=== PATIENT | female | born 1940 | race Caucasian/White ===

== ENCOUNTER 2020-07-16 18:19 | Emergency (ER) | payer MEDICARE, OTHER ==
[~2020-07-16] VITALS: Ht 152.4 cm; Wt 62.0 kg
[2020-07-16] MEDS ORDERED: IV NORMAL SALINE 1,000ML 1,000 ML IV ONE (19:15)
[2020-07-16] MEDS ORDERED: ONDANSETRON PF 4 MG/2 ML VIAL. IVP ONE (19:15)
[2020-07-16] MEDS ORDERED: MORPHINE SULFATE 4 MG/ML DISP.SYRIN. IV ONE (19:15)
--- NOTE | 2020-07-16 19:16 | PHYS DOC ---
General Adult EDM: Chief Complaint: FLANK PAIN HPI: HPI: 72-year-old female presents with right lower quadrant abdominal pain. The patient had an ostomy placed 1 year ago today. For the last few weeks she has been having pain in her abdomen around the ostomy site. Cramping sensation 10. It is worse with torso movements and carrying things with her arms. She was told she has a hernia in this area. She is supposed to be did gain a support belt. She presents today because the pain is so bad. She has been taking oxycodone from a family member her last dose was 3:30 PM. She is not going back to the surgeon for about 10 days. Her primary complaint with the pain. Review of Systems: Review of Systems: Constitutional: Denies fever or chills Eyes: Denies change in visual acuity HENT: Denies nasal congestion or sore throat Respiratory: Denies cough or shortness of breath Cardiovascular: Denies chest pain or edema GI: RLQ abdominal pain. Denies nausea, vomiting, bloody stools or diarrhea : Denies dysuria Musculoskeletal: Denies back pain or joint pain Integument: Denies rash Neurologic: Denies headache, focal weakness or sensory changes Endocrine: Denies polyuria or polydipsia Lymphatic: Denies swollen glands Psychiatric: Denies depression or anxiety Current Medications: Current Meds: Current Medications Medications (Trade) Dose Ordered Sig/Robert Start Time Stop Time Status Last Admin Dose Admin Morphine Sulfate (Morphine 4mg Syringe) 4 mg 1X ONCE 07/16/20 19:15 07/16/20 19:16 UNV Ondansetron HCl (Zofran) 4 mg 1X ONCE 07/16/20 19:15 07/16/20 19:16 UNV Sodium Chloride 1,000 ml @ 1,000 mls/hr 1X ONCE 07/16/20 19:15 07/16/20 20:14 UNV Physical Exam: PE: Constitutional: Well developed, well nourished, no acute distress, non-toxic appearance. [] HENT: Normocephalic, atraumatic, bilateral external ears normal, oropharynx moist, no oral exudates, nose normal. [] Eyes: PERRLA, EOMI, conjunctiva normal, no discharge. [] Neck: Normal range of motion, no tenderness, supple, no stridor. [] Cardiovascular: Heart rate regular rhythm, no murmur [] Lungs & Thorax: Bilateral breath sounds clear to auscultation [] Abdomen: Bowel sounds normal, soft, ostomy on right, tenderness lateral to ostomy, no masses, no pulsatile masses. [] Skin: Warm, dry, no erythema, no rash. [] Back: No tenderness, no CVA tenderness. [] Extremities: No tenderness, no cyanosis, no clubbing, ROM intact, no edema. [] Neurologic: Alert and oriented X 3, normal motor function, normal sensory function, no focal deficits noted. [] Psychologic: Affect normal, judgement normal, mood normal. [] EKG: EKG: [] Radiology/Procedures: Radiology/Procedures: [] Impressions: Exam: CT of abdomen and pelvis with contrast INDICATION: Pain around ostomy TECHNIQUE: Sequential axial images through the abdomen and pelvis obtained following the administration of 60 mL of Isovue-370 IV contrast. Sagittal and coronal reformatted images were reconstructed from the axial data and reviewed. Comparisons: None FINDINGS: Heart size is normal. Effusion. Strandy opacities at dependent portion lungs likely representing atelectasis. No pleural effusion. Mild intrahepatic or ductal dilatation is noted. Gallbladder is mildly distended with gallstones. Otherwise, liver, spleen, pancreas and adrenals are unremarkable. No perinephric inflammation or hydronephrosis. Cystectomy changes with ileal conduit is seen. Nonobstructing left renal calculi are seen. Cystic lesion at the kidneys bilaterally some which are too small characterize largest at the mid right kidney representing simple cysts. Uterus is absent. There is a soft tissue nodule measuring approximately 2.3 cm in the hysterectomy bed seen on series 2 image 67. Right lower quadrant ileostomy with parastomal hernia containing several loops of small bowel. No evidence for obstruction. Remainder of the large and small bowel are unremarkable. No free intra-abdominal air or fluid. Abdominal aorta has a normal course and caliber. Abdominal vasculature is patent. There are several prominent mildly enlarged right common iliac lymph nodes largest on series 2 image 50 measuring approximately 1.3 cm in short axis. There is a lytic soft tissue lesion involving the left pedicle of L3. Several other lytic lesions are noted in the axial skeleton. Mild compression of the L1 vertebral body. IMPRESSION: 1. Postsurgical changes of hysterectomy/cystectomy with a right lower quadrant ileal conduit. There is a parastomal hernia containing several loops of small bowel, no evidence for obstruction. 2. Findings of metastatic disease with numerous lytic lesions in the axilla skeleton as well as a soft tissue nodule at the hysterectomy/cystectomy site measuring 2.3 cm. 3. There are several prominent mildly enlarged right common iliac and external iliac lymph nodes which are nonspecific however suspicious for metastatic involvement. Exposure: One or more of the following in the visualized dose reduction techniques were utilized for this examination: 1. Automated exposure control 2. Adjustment of the MA and/or KV according to patient size 3. Use of iterative of reconstructive technique Electronically signed by: Mary Figueroa MD (07/16/2020 10:46 PM) [facility] DICTATED AND SIGNED BY: MARY FIGUEROA MD DATE: 07/16/202245 CC: CLEMENTE MENDEZ MD; YUE HA DO ~ Heart Score: Risk Factors: Risk Factors: DM, Current or recent (<one month) smoker, HTN, HLP, family history of CAD, obesity. Risk Scores: Score 0 - 3: 2.5% MACE over next 6 weeks - Discharge Home Score 4 - 6: 20.3% MACE over next 6 weeks - Admit for Clinical Observation Score 7 - 10: 72.7% MACE over next 6 weeks - Early Invasive Strategies Course & Med Decision Making: Course & Med Decision Making Pertinent Labs and Imaging studies reviewed. (See chart for details) The patient has a slight elevated white count of 15. Bowel rest of the labs are essentially normal. See labs for more specific details. Her CT scan does show loops of bowel in the hernia around the stoma. No evidence of obstruction. I have advised that the patient follow-up with her surgical team by calling them tomorrow. I will give her a short course of Percocet 5 for her discomfort. I was able to control her pain with 4 mg of morphine in the ER. She is stable for discharge at this time. [] Dragon Disclaimer: Dragsergo Disclaimer: This electronic medical record was generated, in whole or in part, using a voice recognition dictation system. Departure Departure: Impression: Primary Impression: Ventral hernia Qualified Codes: K43.9 - Ventral hernia without obstruction or gangrene Disposition: 01 DC HOME SELF CARE/HOMELESS Condition: STABLE Referrals: CLEMENTE MENDEZ MD (PCP) Patient Instructions: Hernia, [id number] Scripts Oxycodone Hcl/Acetaminophen (PERCOCET 5-325 MG TABLET ) 1 Each Tablet 1 TAB PO Q6HRS PRN for PAIN, #10 TAB 0 Refills Prov: YUE HA DO 07/16/20 YUE HA DO Jul 16, 2020 19:16
[2020-07-16 19:19] LABS: BACTERIA,URINE 0 /HPF (0-FEW); BILIRUBIN,URINE NEG (NEG); CLARITY,URINE CLEAR; COLOR,URINE COLORLESS; GLUCOSE,URINE NEG (NEG); NITRITE,URINE NEG (NEG); UROBILINOGEN,URINE 0.2 mg/dL (0.2 mg/dL); WBC,URINE TNTC /HPF (0-4)
[2020-07-16] MEDS ORDERED: IOHEXOL 300 MG/ML 75 ML VIAL. IV ONE (19:30)
[2020-07-16 20:15] LABS: BASO % 0 % (0-3); EOS % 0 % (0-3); HEMATOCRIT 36.1 % (36.0-47.0); HEMOGLOBIN 11.4 g/dL (12.0-15.5); LYMPH # 0.6 x10^3/uL (1.0-4.8); LYMPH % 4 % (24-48); MEAN CORPUSCULAR HEMOGLOBIN 27 pg (25-35); MEAN CORPUSCULAR HGB CONC 32 g/dL (31-37); MEAN CORPUSCULAR VOLUME 85 fL (79-100); MONO # 0.8 x10^3/uL (0.0-1.1); MONO % 5 % (0-9); NEUT % 91 % (31-73); PLATELET COUNT 703 x10^3/uL (140-400); RED BLOOD COUNT 4.26 x10^6/uL (3.50-5.40); RED CELL DISTRIBUTION WIDTH 17.1 % (11.5-14.5); WHITE BLOOD COUNT 15.4 x10^3/uL (4.0-11.0)
[2020-07-16 20:49] LABS: % BASOS 1 % (0-3); % LYMPHS 9 % (24-48); % MONOS 7 % (0-10); % SEGS 83 % (35-66); PLATELET CLUMP PRESENT; PLT ESTIMATE INCREASED (ADEQUATE)
[2020-07-16 21:06] LABS: % BANDS 0 % (0-9)
[2020-07-16 21:34] LABS: CALCIUM 9.6 mg/dL (8.5-10.1); CREATININE 1.2 mg/dL (0.6-1.0); GFR 43.4; POTASSIUM 3.8 mmol/L (3.5-5.1)
[2020-07-16 21:40] LABS: ALBUMIN 2.5 g/dL (3.4-5.0); ALBUMIN/GLOBULIN RATIO 0.5 (1.0-1.7); TOTAL BILIRUBIN 0.2 mg/dL (0.2-1.0); TOTAL PROTEIN 7.5 g/dL (6.4-8.2)
--- NOTE | 2020-07-16 22:49 | RAD ---
Exam: CT of abdomen and pelvis with contrast INDICATION: Pain around ostomy TECHNIQUE: Sequential axial images through the abdomen and pelvis obtained following the administration of 60 mL of Isovue-370 IV contrast. Sagittal and coronal reformatted images were reconstructed from the axial data and reviewed. Comparisons: None FINDINGS: Heart size is normal. Effusion. Strandy opacities at dependent portion lungs likely representing atelectasis. No pleural effusion. Mild intrahepatic or ductal dilatation is noted. Gallbladder is mildly distended with gallstones. Otherwise, liver, spleen, pancreas and adrenals are unremarkable. No perinephric inflammation or hydronephrosis. Cystectomy changes with ileal conduit is seen. Nonobstructing left renal calculi are seen. Cystic lesion at the kidneys bilaterally some which are too small characterize largest at the mid right kidney representing simple cysts. Uterus is absent. There is a soft tissue nodule measuring approximately 2.3 cm in the hysterectomy bed seen on series 2 image 67. Right lower quadrant ileostomy with parastomal hernia containing several loops of small bowel. No evidence for obstruction. Remainder of the large and small bowel are unremarkable. No free intra-abdominal air or fluid. Abdominal aorta has a normal course and caliber. Abdominal vasculature is patent. There are several prominent mildly enlarged right common iliac lymph nodes largest on series 2 image 50 measuring approximately 1.3 cm in short axis. There is a lytic soft tissue lesion involving the left pedicle of L3. Several other lytic lesions are noted in the axial skeleton. Mild compression of the L1 vertebral body. IMPRESSION: 1. Postsurgical changes of hysterectomy/cystectomy with a right lower quadrant ileal conduit. There is a parastomal hernia containing several loops of small bowel, no evidence for obstruction. 2. Findings of metastatic disease with numerous lytic lesions in the axilla skeleton as well as a soft tissue nodule at the hysterectomy/cystectomy site measuring 2.3 cm. 3. There are several prominent mildly enlarged right common iliac and external iliac lymph nodes which are nonspecific however suspicious for metastatic involvement. Exposure: One or more of the following in the visualized dose reduction techniques were utilized for this examination: 1. Automated exposure control 2. Adjustment of the MA and/or KV according to patient size 3. Use of iterative of reconstructive technique Electronically signed by: Mary Camejo MD (07/16/2020 10:46 PM) [facility]
[2020-07-16 22:55] VITALS: BP 135/54
[2020-07-16] MEDS ORDERED: OXYC1TAB15 PO (23:02)
== END 2020-07-16 22:45 | disposition home or self-care (01) ==
LOC: ER 18:19
DX: K43.9 Ventral hernia without obstruction or gangrene (principal)
CPT/HCPCS: 36415; 74177; 80053; 81001; 85007; 85025; 87086; 96361; 96374; 96375; 99285; J2270; J2405; J7030; Q9967

== ENCOUNTER 2020-08-10 09:42 | Inpatient (IN) | payer MEDICARE, OTHER ==
[~2020-08-10] VITALS: Ht 152.4 cm; Wt 57.8 kg
[~2020-08-10 09:42] MED LIST: OXYC1TAB15 PO
--- NOTE | 2020-08-10 10:14 | PHYS DOC ---
Past History Past Medical History: Anxiety, Hypothyroid, Other Additional Past Medical Histor: bladder ca,breast ca,bilateral hip pain,current "spots" of ca Past Surgical History: Other Additional Past Surgical Histo: thyroidectomy, lymphnode removed rt axillary,ostomy bag for urine Alcohol Use: None General Adult EDM: Chief Complaint: ALTERED MENTAL STATUS HPI: HPI: Patient is a 80-year-old female who arrives with chief complaint of confusion. Per patient's family they note confusion but patient does not appear confused on my assessment. Patient does have some depression without suicidal ideation. Patient is battling cancer and had a recent ostomy placement she did have a fall about 1 week ago but did denies hitting her head. Patient states that she does have some trouble at night with some confusion and slurring her words due to taking oxycodone for pain. Patient denies any pain at this time but has intermittent abdominal pain. Patient denies any fevers. Symptoms seem to be worse when she takes her pain meds and are better when she is off them. Review of Systems: Review of Systems: Constitutional: Denies fever or chills Eyes: Denies change in visual acuity HENT: Denies nasal congestion or sore throat Respiratory: Denies cough or shortness of breath Cardiovascular: Denies chest pain or edema GI: Complains of intermittent abdominal pain but no vomiting. Patient has some constipation : Denies dysuria Musculoskeletal: Denies back pain or joint pain Integument: Denies rash Neurologic: Denies headache, focal weakness or sensory changes patient has intermittent confusion Endocrine: Denies polyuria or polydipsia Lymphatic: Denies swollen glands Psychiatric: Patient has depression but no suicidal ideation Current Medications: Current Meds: Current Medications Sodium Chloride 1,000 ml @ 1,000 mls/hr 1X ONCE IV Last administered on 08/10/20at 11:49; Start 08/10/20 at 11:30; Stop 08/10/20 at 12:29 Active Scripts Active Percocet 5-325 Mg Tablet (Oxycodone Hcl/Acetaminophen) 1 Each Tablet 1 Tab PO Q6HRS PRN Allergies: Allergies: Allergies Coded Allergies Type Severity Reaction Last Updated Verified Sulfa (Sulfonamide Antibiotics) Allergy Unknown 07/16/20 Yes Physical Exam: PE: Constitutional: Well developed, well nourished, no acute distress, non-toxic appearance. [] HENT: Normocephalic, atraumatic, bilateral external ears normal, no trismus nose normal. [] Eyes: PERRLA, EOMI, conjunctiva normal, no discharge. [] Neck: Normal range of motion, no tenderness, supple, no stridor. [] Cardiovascular: Mildly tachycardic with a regular rhythm peripheral pulses are intact cap refill brisk Lungs & Thorax: Bilateral breath sounds clear to auscultation [] Abdomen: Ostomy pink and patent, soft, no tenderness, no masses, no pulsatile masses. [] Skin: Warm, dry, no erythema, no rash. [] Back: No tenderness, no CVA tenderness. [] Extremities: No tenderness, no cyanosis, no clubbing, ROM intact, no edema. [] Neurologic: Alert and oriented X 3, normal motor function, normal sensory function, no focal deficits noted. [] Psychologic: Mildly depressed mood without suicidal ideation Current Patient Data: Labs: Laboratory Tests Test 08/10/20 10:22 08/10/20 10:25 White Blood Count 11.7 x10^3/uL Red Blood Count 4.32 x10^6/uL Hemoglobin 11.4 g/dL Hematocrit 37.1 % Mean Corpuscular Volume 86 fL Mean Corpuscular Hemoglobin 26 pg Mean Corpuscular Hemoglobin Concent 31 g/dL Red Cell Distribution Width 19.2 % Platelet Count 556 x10^3/uL Neutrophils (%) (Auto) 72 % Lymphocytes (%) (Auto) 14 % Monocytes (%) (Auto) 10 % Eosinophils (%) (Auto) 3 % Basophils (%) (Auto) 1 % Neutrophils # (Auto) 8.4 x10^3uL Lymphocytes # (Auto) 1.6 x10^3/uL Monocytes # (Auto) 1.2 x10^3/uL Eosinophils # (Auto) 0.4 x10^3/uL Basophils # (Auto) 0.2 x10^3/uL Sodium Level 144 mmol/L Potassium Level 4.0 mmol/L Chloride Level 110 mmol/L Carbon Dioxide Level 20 mmol/L Anion Gap 14 Blood Urea Nitrogen 34 mg/dL Creatinine 1.4 mg/dL Estimated GFR (Cockcroft-Gault) 36.4 BUN/Creatinine Ratio 24 Glucose Level 96 mg/dL Calcium Level 9.2 mg/dL Total Bilirubin 0.4 mg/dL Aspartate Amino Transf (AST/SGOT) 24 U/L Alanine Aminotransferase (ALT/SGPT) 16 U/L Alkaline Phosphatase 223 U/L Total Protein 7.3 g/dL Albumin 2.2 g/dL Albumin/Globulin Ratio 0.4 Urine Collection Type Unknown Urine Color Yellow Urine Clarity Turbid Urine pH 8.0 Urine Specific [place] 1.015 Urine Protein 100 mg/dl Urine Glucose (UA) Neg mg/dL Urine Ketones (Stick) Neg mg/dL Urine Blood Mod Urine Nitrite Pos Urine Bilirubin Neg Urine Urobilinogen Dipstick 0.2 mg/dL Urine Leukocyte Esterase Large Urine RBC 20-40 /HPF Urine WBC >40 /HPF Urine Squamous Epithelial Cells Few /LPF Urine Transitional Epithelial Cells Few /LPF Urine Renal Epithelial Cells Few /LPF Urine Bacteria Many /HPF Urine Mucus Mod /LPF Current Medications Medications (Trade) Dose Ordered Sig/Rboert Route PRN Reason Start Time Stop Time Status Last Admin Dose Admin Sodium Chloride 1,000 ml @ 1,000 mls/hr 1X ONCE IV 08/10/20 11:30 08/10/20 12:29 08/10/20 11:49 Vital Signs: Vital Signs Date Time Temp Pulse Resp B/P (MAP) Pulse Ox O2 Delivery O2 Flow Rate FiO2 08/10/20 11:02 100 18 127/103 (111) 93 Room Air 08/10/20 10:10 98.1 EKG: EKG: EKG interpreted by me sinus tachycardia with a rate of 101 normal axis normal intervals normal ST segments [] Radiology/Procedures: Radiology/Procedures: [[address] [address] IMAGING REPORT Signed PATIENT: GINNY ROLLE ACCOUNT: [id number] : 1940 LOCATION: ER AGE: 80 SEX: F EXAM STATUS: REG ER ORD. PHYSICIAN: SHAWANDA FARIAS MD REASON: confusion PROCEDURE: PORTABLE CHEST 1V Examination: PORTABLE CHEST 1V History: Reason: confusion / Comparison/Correlation: None Findings: Upright portable frontal view of the chest was obtained. Surgical clips involving the right lower extremity level are present. Calcified granulomas are present. No pneumothorax. No infiltrate or effusion. Heart size and pulmonary vasculature are normal. Bony structures are unremarkable for age. Impression: No active disease. Electronically signed by: Rodney Pena MD (08/10/2020 11:12 AM) [id number] DICTATED AND SIGNED BY: RODNEY PENA MD DATE: 08/10/20 1112 CC: CLEMENTE MENDEZ MD; SHAWANDA FARIAS MD ~MTH0 0 ][address] [address] IMAGING REPORT Signed PATIENT: GINNY ROLLE ACCOUNT: [id number] : 1940 LOCATION: ER AGE: 80 SEX: F EXAM STATUS: REG ER ORD. PHYSICIAN: SHAWANDA FARIAS MD REASON: confusion PROCEDURE: CT HEAD WO CONTRAST CT HEAD WO CONTRAST Date: 08/10/2020 10:16 AM Clinical Indication: Reason: confusion / Spl. Instructions: / History: Comparison: None. Technique: 5 mm axial tomographic images were obtained of the head without contrast. These were viewed on brain and bone windows. One or more of the following dose reduction techniques were utilized: Automated exposure control (AEC), Adjustment of mA and/or kV according to patient size, Use of iterative reconstruction technique such as ASiR, CT scan done according to ALARA and image gently/image wisely Findings: Mild generalized cerebral and cerebellar volume loss. Mild nonspecific periventricular hypoattenuation, most commonly seen with chronic small vessel ischemic disease. Calcified atherosclerosis of the bilateral cavernous and paraclinoid internal carotid arteries and intracranial vertebral arteries. Left basal ganglia lacunar infarct. No intra- or extra-axial mass or fluid collection. No acute hemorrhage. The ventricles are normal in size, shape, and morphology. The moreland-white matter junction is normal. The subarachnoid cisterns are patent. The visualized paranasal sinuses are normal. The visualized portions of the orbits and globes are normal. The mastoid air cells are clear. The set up and charger topogram shows no lytic lesion or fracture. Impression: No acute hemorrhage or large territory moreland-white loss. Left basal ganglia lacunar infarct appears chronic, although there are no priors for comparison. Mild cerebral volume loss. Mild chronic small vessel ischemic disease. Electronically signed by: John Hoover MD (08/10/2020 11:03 AM) [id number] DICTATED AND SIGNED BY: JOHN HOOVER MD DATE: 08/10/20 1103 CC: CLEMENTE MENDEZ MD; SHAWANDA FARIAS MD ~MTH0 0 Heart Score: Risk Factors: Risk Factors: DM, Current or recent (<one month) smoker, HTN, HLP, family history of CAD, obesity. Risk Scores: Score 0 - 3: 2.5% MACE over next 6 weeks - Discharge Home Score 4 - 6: 20.3% MACE over next 6 weeks - Admit for Clinical Observation Score 7 - 10: 72.7% MACE over next 6 weeks - Early Invasive Strategies Course & Med Decision Making: Course & Med Decision Making Pertinent Labs and Imaging studies reviewed. (See chart for details) [] 80-year-old female presents with a chief complaint of confusion. Patient underwent extensive work-up to rule out stroke and cardiac etiologies as well as metabolic causes. Patient has a significant urinary tract infection as well as renal insufficiency. Patient will be admitted to Dr. Hernandez for IV fluids and antibiotics. Dragon Disclaimer: Dragon Disclaimer: This electronic medical record was generated, in whole or in part, using a voice recognition dictation system. Departure Departure: Impression: Primary Impression: Urinary tract infection Additional Impressions: Renal insufficiency Metabolic encephalopathy Disposition: ADMITTED INPT THIS HOSP Admitting Physician: Jose Hernandez Condition: STABLE Referrals: CLEMENTE MENDEZ MD (PCP) SHAWANDA FARIAS MD Aug 10, 2020 10:14
--- NOTE | 2020-08-10 10:58 | EKG ---
[address] [address] Test Date: 2020-08-10 Test Time: 10:47:16 Pat Name: GINNY ROLLE Department: Room: Gender: F Training Consultant: JET : 1940 Requested By: SHAWANDA FARIAS Order Number: [id number] Reading MD: Measurements Intervals [place] Rate: 101 P: 59 TN: 122 QRS: 38 QRSD: 78 T: 31 QT: 338 QTc: 439 Interpretive Statements SINUS TACHYCARDIA OTHERWISE NORMAL ECG RI6.02 No previous ECG available for comparison
[2020-08-10 11:05] LABS: BASO # 0.2 x10^3/uL (0.0-0.2); BASO % 1 % (0-3); EOS # 0.4 x10^3/uL (0.0-0.7); EOS % 3 % (0-3); HEMATOCRIT 37.1 % (36.0-47.0); HEMOGLOBIN 11.4 g/dL (12.0-15.5); LYMPH # 1.6 x10^3/uL (1.0-4.8); LYMPH % 14 % (24-48); MEAN CORPUSCULAR HEMOGLOBIN 26 pg (25-35); MEAN CORPUSCULAR HGB CONC 31 g/dL (31-37); MEAN CORPUSCULAR VOLUME 86 fL (79-100); MONO # 1.2 x10^3/uL (0.0-1.1); MONO % 10 % (0-9); NEUT # 8.4 x10^3uL (1.8-7.7); NEUT % 72 % (31-73); PLATELET COUNT 556 x10^3/uL (140-400); RED BLOOD COUNT 4.32 x10^6/uL (3.50-5.40); RED CELL DISTRIBUTION WIDTH 19.2 % (11.5-14.5); WHITE BLOOD COUNT 11.7 x10^3/uL (4.0-11.0)
--- NOTE | 2020-08-10 11:06 | RAD ---
CT HEAD WO CONTRAST Date: 08/10/2020 10:16 AM Clinical Indication: Reason: confusion / Spl. Instructions: / History: Comparison: None. Technique: 5 mm axial tomographic images were obtained of the head without contrast. These were viewed on brain and bone windows. One or more of the following dose reduction techniques were utilized: Automated exposure control (AEC), Adjustment of mA and/or kV according to patient size, Use of iterative reconstruction technique such as ASiR, CT scan done according to ALARA and image gently/image wisely Findings: Mild generalized cerebral and cerebellar volume loss. Mild nonspecific periventricular hypoattenuation, most commonly seen with chronic small vessel ischemic disease. Calcified atherosclerosis of the bilateral cavernous and paraclinoid internal carotid arteries and intracranial vertebral arteries. Left basal ganglia lacunar infarct. No intra- or extra-axial mass or fluid collection. No acute hemorrhage. The ventricles are normal in size, shape, and morphology. The moreland-white matter junction is normal. The subarachnoid cisterns are patent. The visualized paranasal sinuses are normal. The visualized portions of the orbits and globes are normal. The mastoid air cells are clear. The golf course mechanic topogram shows no lytic lesion or fracture. Impression: No acute hemorrhage or large territory moreland-white loss. Left basal ganglia lacunar infarct appears chronic, although there are no priors for comparison. Mild cerebral volume loss. Mild chronic small vessel ischemic disease. Electronically signed by: Salas Hoover MD (08/10/2020 11:03 AM) [id number]
[2020-08-10 11:09] LABS: CALCIUM 9.2 mg/dL (8.5-10.1); CREATININE 1.4 mg/dL (0.6-1.0); GFR 36.4
--- NOTE | 2020-08-10 11:15 | RAD ---
Examination: PORTABLE CHEST 1V History: Reason: confusion / Comparison/Correlation: None Findings: Upright portable frontal view of the chest was obtained. Surgical clips involving the right lower extremity level are present. Calcified granulomas are present. No pneumothorax. No infiltrate or effusion. Heart size and pulmonary vasculature are normal. Bony structures are unremarkable for age. Impression: No active disease. Electronically signed by: Rodney Jones MD (08/10/2020 11:12 AM) [id number]
[2020-08-10 11:16] LABS: ALBUMIN 2.2 g/dL (3.4-5.0); ALBUMIN/GLOBULIN RATIO 0.4 (1.0-1.7); TOTAL BILIRUBIN 0.4 mg/dL (0.2-1.0); TOTAL PROTEIN 7.3 g/dL (6.4-8.2)
[2020-08-10] MEDS ORDERED: IV NORMAL SALINE 1,000ML 1,000 ML IV ONE (11:30)
[2020-08-10 11:36] LABS: BACTERIA,URINE MANY /HPF (0-FEW); BILIRUBIN,URINE NEG (NEG); CLARITY,URINE TURBID; COLOR,URINE YELLOW; GLUCOSE,URINE NEG (NEG); NITRITE,URINE POS (NEG); RBC,URINE 20-40 /HPF (0-2); SQUAMOUS EPITHELIAL CELL,UR FEW /LPF; UROBILINOGEN,URINE 0.2 mg/dL (0.2 mg/dL); WBC,URINE >40 /HPF (0-4)
[2020-08-10] MEDS ORDERED: ONDANSETRON PF 4 MG/2 ML VIAL. IVP PRN (12:00)
[2020-08-10] MEDS ORDERED: cefTRIAXone SODIUM 1 GM VIAL ONE (12:48)
[2020-08-10] MEDS ORDERED: IV NORMAL SALINE 50ML 50 ML ONE (12:48)
[2020-08-10] MEDS ORDERED: ALPR0.25 PO (16:21)
[2020-08-10] MEDS ORDERED: CYCL1DRO OU (16:21)
[2020-08-10] MEDS ORDERED: ONDA4TAB7 PO (16:21)
[2020-08-10] MEDS ORDERED: TRAZ-120 PO (16:21)
[2020-08-10] MEDS ORDERED: IBUP100T8 PO (16:21)
[2020-08-10] MEDS ORDERED: LOVA20TA2 PO (16:21)
[2020-08-10] MEDS ORDERED: OXYC5CAP PO (16:21)
[2020-08-10] MEDS ORDERED: LEVO50TA5 PO (16:21)
[2020-08-10] MEDS ORDERED: [UNRECOGNIZED DRUG - CODE] IV (16:42)
[2020-08-10 17:10] VITALS: BP 106/63
--- NOTE | 2020-08-10 17:30 | NUR ---
NSG NOTE; ADMISSION ADMIT FROM ED AT 1655 VIA CART ACCOMP BY EMS PERSONNEL C/O WEAKNESS AND INCREASING CONFUSION, ESPECIALLY AT NIGHT, OVER THE LAST WEEK. PT HAS HAD TWO FALLS IN THE LAST WEEK REQUIRING ASSISTANCE TO GET UP OFF THE FLOOR USES O2 2L NC AT NIGHT. HX COPD AND QUIT SMOKING X 1 WEEK NORMALLY LIVES HOME ALONE BUT MOVED IN WITH HER DAUGHTER X 4 DAYS AFTER FALLS
[2020-08-10] MEDS ORDERED: traZODone 50 MG TABLET. PO PRN (18:00)
[2020-08-10] MEDS ORDERED: ONDANSETRON ODT 4 MG TAB.RAPDIS PO PRN (18:15)
[2020-08-10] MEDS ORDERED: IBUPROFEN 200 MG TABLET PO PRN (18:15)
[2020-08-10] MEDS: IV DEXTROSE 5 %-0.45 % NACL 1,000 ML IV SCH (18:43)
[2020-08-10] MEDS: cycloSPORINE 0.05% OPTH 1 DROP DROPERETTE OU SCH (20:58)
[2020-08-10] MEDS: ALPRAZolam 0.25 MG TABLET PO PRN (20:59)
[2020-08-10] MEDS: ACETAMINOPHEN 325 MG TABLET PO PRN (20:59)
[2020-08-10 22:51] VITALS: BP 97/62
--- NOTE | 2020-08-11 00:14 | NUR ---
pt was in bed upon assessment and med pass this evening. pt is calm and cooperative with cares. pt c/o back pain, tylenol given per order. pt is currently resting in bed. will continue to monitor.
[2020-08-11] MEDS: ACETAMINOPHEN 325 MG TABLET PO PRN ×2 (00:45→08:31)
[2020-08-11] MEDS: IV DEXTROSE 5 %-0.45 % NACL 1,000 ML IV SCH (04:45)
[2020-08-11 05:05] VITALS: BP 93/58
[2020-08-11] MEDS ORDERED: LEVOTHYROXINE 50 MCG TABLET PO SCH (06:00)
[2020-08-11 06:38] LABS: HEMATOCRIT 28.3 % (36.0-47.0); HEMOGLOBIN 8.8 g/dL (12.0-15.5); RED BLOOD COUNT 3.32 x10^6/uL (3.50-5.40); RED CELL DISTRIBUTION WIDTH 18.7 % (11.5-14.5); WHITE BLOOD COUNT 9.1 x10^3/uL (4.0-11.0)
[2020-08-11 06:56] LABS: ALBUMIN 1.6 g/dL (3.4-5.0); ALBUMIN/GLOBULIN RATIO 0.4 (1.0-1.7); CALCIUM 7.8 mg/dL (8.5-10.1); CREATININE 1.2 mg/dL (0.6-1.0); GFR 43.4; TOTAL BILIRUBIN 0.2 mg/dL (0.2-1.0); TOTAL PROTEIN 5.4 g/dL (6.4-8.2)
[2020-08-11] MEDS: cycloSPORINE 0.05% OPTH 1 DROP DROPERETTE OU SCH (08:31)
[2020-08-11] MEDS: ALPRAZolam 0.25 MG TABLET PO PRN (08:31)
[2020-08-11] MEDS ORDERED: ATORVASTATIN CALCIUM 10 MG TABLET. PO SCH (09:00)
[2020-08-11] MEDS ORDERED: LEVO75TA5 PO (09:04)
[2020-08-11] MEDS ORDERED: LIDOCAINE (700MG/PATCH) PATCH. TD SCH (09:45)
[2020-08-11 10:02] VITALS: BP 111/70
[2020-08-11 15:21] VITALS: BP 120/73
[2020-08-11] MEDS ORDERED: LEVO500T8 PO (16:24)
[2020-08-11] MEDS ORDERED: POTASSIUM CHLORIDE 20 MEQ TABLET.ER. PO ONE (16:30)
--- NOTE | 2020-08-11 16:51 | NUR ---
NSG NOTE; DISCHARGE VERBAL AND WRITTEN DISCHARGE INSTRUCTIONS GIVEN TO PT AND DAUGHTER WITH VERBAL UNDERSTANDING DISCHARGED TO HOME AT 1640 VIA W/C ACCOMP BY DAUGHTER
[2020-08-11] MEDS ORDERED: PATCH REMOVAL. MC SCH (21:00)
[2020-08-11] MEDS ORDERED: LACTOBACILLUS RHAMNOSUS GG 1 CAPSULE. PO SCH (21:00)
--- NOTE | 2020-08-11 21:05 | DS ---
DATE OF DISCHARGE: 08/11/2020 HOSPITAL COURSE: The patient is a 80-year-old female patient who came yesterday with a complaint of altered mental status. She arrived with a chief complaint of confusion. Per patient's family, they note confusion, but the patient does not appear confused. When she arrived here, she did have some depression without suicidal ideation. The patient is battling cancer and had recent ostomy placement. She did have a fall about 1 week ago, but denies any hitting her head. She said that she does have some trouble at night time with some confusion and slurring her words due to taking oxycodone for pain. She denied any pain at the time of arrival, she had intermittent abdominal pain. The patient denies any fever. She was extensively investigated in the Emergency Room and was found to have acute on chronic kidney injury. Her urinalysis also showed that there is large amount of wbcs and many bacteria and the urine was positive for nitrite and therefore, the patient was admitted and was started on IV ceftriaxone and we did send urine for culture and sensitivity, the result of which is still pending at the time of this dictation. The patient wants to go home and she remained stable. Therefore, she was discharged to continue on oral levofloxacin. PAST MEDICAL HISTORY: Significant for hypothyroidism, right breast cancer, bladder cancer, chronic obstructive pulmonary disease, anxiety and depression. She also has hyperlipidemia, chronic pain syndrome, and hypothyroidism. PAST SURGICAL HISTORY: Significant for thyroidectomy and lymph node resection from right axilla, urostomy bag for urine and right mastectomy and transurethral resection of the bladder cancer. ALLERGIES: SHE IS ALLERGIC TO SULFA DRUGS, AMOXICILLIN, AND AZITHROMYCIN. MEDICATIONS: She is currently on ____ 20 mg IV weekly for metastatic cancer, lovastatin 20 mg once a day, ibuprofen 100 mg every 6 hours, oxycodone 5 mg every 6 hours, oxycodone/APAP 5/325 one tablet every 6 hours, trazodone 50 mg at bedtime, alprazolam 0.25 mg 3 times a day, cyclosporine for Restasis 1 drop to both eyes twice a day, ondansetron 4 mg every 6 hours and levothyroxine sodium 75 mcg once a day. PHYSICAL EXAMINATION: GENERAL: On arrival to the Emergency Room, she looked well and was clearly in no apparent respiratory distress. She was pale, somewhat cachectic, but no jaundice, cyanosis or thyromegaly. No jugular venous distention. No limb edema. VITAL SIGNS: Her heart rate was 73, blood pressure was 97/62, temperature was 98.5, respiratory rate was 16, and oxygen saturation was 95%. HEAD, EYES, EARS, NOSE AND THROAT: Showed normocephalic, atraumatic. NECK: Supple. HEART: Showed normal first and second heart sounds. No gallop or murmur. CHEST: Showed central trachea, equal bilateral expansion, air entry, vesicular sounds. No crepitation or rhonchi. ABDOMEN: Scaphoid, soft with a urostomy bag in place. NEUROLOGIC: She was grossly intact. LABORATORY DATA: Her lab work showed her white cell count was 11,700; hemoglobin 11.4, hematocrit 37, MCV 86 and platelet count of 558,000. Her chemistry showed a serum sodium 144, potassium 4, chloride 110, bicarbonate 20, anion gap of 14, BUN of 34, creatinine was 1.4, estimated GFR was 36 mL per minute. Her glucose 96, calcium was 9.2. Total bilirubin, AST, ALT were normal. Alkaline phosphatase slightly elevated. Total protein 7.3, albumin 2.2. Her urine was yellow, turbid with a pH of 8, specific gravity of 1.015, there was large amount of protein. The urine was negative for glucose, ketones, blood, positive for nitrite, large amount of leukocyte esterase with 20-40 rbc's, more than 40 wbc's, and many bacteria. DISCHARGE MEDICATIONS: The patient was discharged home to continue on levofloxacin 250 mg once a day for 7 days, alprazolam 0.25 mg 3 times a day, cyclosporine for Restasis 1 drop both eyes twice a day. She is on ____ 20 mg IV weekly, ibuprofen 100 mg every six hours, levothyroxine sodium 75 mcg once a day, lovastatin 20 mg once a day, ondansetron 4 mg every 6 hours, oxycodone 5 mg every 6 hours and trazodone 50 mg at bedtime. FINAL DISCHARGE DIAGNOSES: 1. Acute on chronic kidney injury, improving. 2. Hypokalemia, replaced. 3. Urinary tract infection with multiple organisms. Culture and sensitivity is still pending. The patient was discharged home on oral levofloxacin 250 mg once a day. 4. Other medical problems include hyperlipidemia, hypothyroidism, and COPD. CASSIE TEIXEIRA MD DR: RADHA/jose JOB#: [id number] / [id number]
[2020-08-12] MEDS ORDERED: LEVOTHYROXINE 75 MCG TABLET PO SCH (09:00)
[2020-08-17] MEDS ORDERED: [UNRECOGNIZED DRUG - OTHER] IV SCH (09:00)
== END 2020-08-11 16:40 | disposition home or self-care (01) | DRG 682 ==
LOC: ER 09:42 → 1 SOUTH 12:00
PROVIDERS: ADMIT Internal Medicine; ATTEND Internal Medicine
DX: N17.9 Acute kidney failure, unspecified (principal); G93.41 Metabolic encephalopathy; N39.0 Urinary tract infection, site not specified; E78.5 Hyperlipidemia, unspecified; E87.6 Hypokalemia; E89.0 Postprocedural hypothyroidism; F32.9 Major depressive disorder, single episode, unspecified; G89.4 Chronic pain syndrome; J44.9 Chronic obstructive pulmonary disease, unspecified; F41.9 Anxiety disorder, unspecified; N18.9 Chronic kidney disease, unspecified; Z85.3 Personal history of malignant neoplasm of breast; Z85.51 Personal history of malignant neoplasm of bladder; Z90.11 Acquired absence of right breast and nipple; Z88.2 Allergy status to sulfonamides
CPT/HCPCS: 36415; 70450; 71045; 80053; 81001; 83605; 85025; 85027; 87040; 87086; 93005; 96374; J0696; J2405; 97530; 99285-25; J7030

== ENCOUNTER 2021-02-02 11:33 | Emergency (ER) | payer MEDICARE, OTHER ==
[~2021-02-02] VITALS: Ht 152.4 cm; Wt 57.8 kg
[~2021-02-02 11:33] MED LIST changes: +ALPR0.25 PO; +CYCL1DRO OU; +IBUP100T8 PO; +LEVO500T8 PO; +LEVO50TA5 PO; +LEVO75TA5 PO; +LOVA20TA2 PO; +ONDA4TAB7 PO; +OXYC5CAP PO; +TRAZ-120 PO; +[UNRECOGNIZED DRUG - CODE] IV
[2021-02-02 11:46] VITALS: BP 99/64
[2021-02-02] MEDS ORDERED: HYDROcodone/APAP 5/325MG 1 TAB TABLET PO ONE (12:30)
--- NOTE | 2021-02-02 12:33 | PHYS DOC ---
Past History Past Medical History: Anxiety, Cancer, Hypothyroid, Other Additional Past Medical Histor: bladder ca,breast ca,bilateral hip pain,current "spots" of ca (JOSELUIS MORRIS [employer]ICS MANUFACTURING TECHNICIAN) Past Surgical History: Other Additional Past Surgical Histo: thyroidectomy, lymphnode removed rt axillary,ostomy bag for urine (JOSELUIS MORRIS APRN) Alcohol Use: None (JOSELUIS MORRIS APRN) Adult General Chief Complaint Chief Complaint: NOSEBLEED HPI HPI Patient is a 80-year-old female presents emergency department complaining of a nosebleed that started approximately 630 this morning that seemed to slow down and stop just prior to arrival to the ER today. Patient denies any trauma to her nose or face. Patient reports she started taking Xarelto last October related to an incidental finding of a pulmonary emboli in her lung. Patient denies any shortness of breath or chest pain, denies nausea vomiting or diarrhea. Patient states she has a history of bladder cancer in which her bladder was removed in July 2019, reports a finding of spots in her pelvis liver and back of October 2019 and was started on chemo treatments. Patient reports she was due for chemo treatment today however her cancer doctor at told her to come to the emergency department and they would reschedule her chemo treatment. Patient also reports being unable to hear out of her right ear for several months, reporting she has problems with wax buildup. Patient states last week she dropped her remote control under her bed and strained both her shoulders trying to get it out, has been treating with Tylenol for her bilateral shoulder pains that she currently rates an 8 out of 10 pain. Patient reports recently ending a 10-day regimen of Levaquin for a urinary stoma infection, patient states it looks and feels fine now. Patient reports she has not had a COVID-19 vaccination or a flu shot of 2019 stating she was on a study medication and was recommended not to have these vaccinations. Patient reports having a negative COVID-19 test last week. Patient denies any loss of taste or smell. Patient states she feels fine at this time and is a little nervous because her nose is bleeding. Patient denies any other physical complaints or physical concerns (JOSELUIS MORRIS [employer] MANUFACTURING TECHNICIAN) Review of Systems Review of Systems 14 body systems of review of systems have been reviewed. See HPI for pertinent positives and negative responses, otherwise all other systems are negative, nonpertinent or noncontributory. (JOSELUIS MORRIS APRN) Allergies Allergies Allergies Coded Allergies Type Severity Reaction Last Updated Verified Sulfa (Sulfonamide Antibiotics) Allergy Unknown 07/16/20 Yes amoxicillin Allergy Unknown 08/10/20 Yes azithromycin Allergy Unknown 08/10/20 Yes (JOSELUIS MORRIS APRN) Physical Exam Physical Exam Constitutional: Well developed, well nourished, no acute distress, non-toxic appearance. 80-year-old female in no apparent distress, has dried blood near her nose on her shirt and on her shoes, holding a facial tissue dabbing scant oozing blood from her nose during exam. HENT: Normocephalic, atraumatic, bilateral external ears normal, oropharynx moist, no oral exudates, nose normal, no trauma of the nose appreciated, scant bright red blood oozing from right nare, blood clot noticed in right nasal turbinate, left nasal turbinate moist, pink, no bleeding appreciated, oropharynx pink, moist, no infectious process appreciated, noted scant bright red blood postnasal oozing. Left TM within normal limits intact right TM unable to visualize related to wax impaction. Eyes: PERRLA, EOMI, conjunctiva normal, no discharge. Neck: Normal range of motion, no tenderness, supple, no stridor. Cardiovascular:Heart rate regular rhythm, no murmur, heart rate tachycardic 110 bpm during physical exam. Lungs & Thorax: Bilateral breath sounds clear to auscultation no adventitious lung sounds appreciated, O2 sat 97% during physical exam. Abdomen: Bowel sounds normal, soft, no tenderness, no masses, no pulsatile masses. Urinary stoma right lower quadrant, stoma pink no infectious process appreciated. Skin: Warm, dry, no erythema, no rash. Back: No tenderness, no CVA tenderness. Extremities: No tenderness, no cyanosis, no clubbing, ROM intact, no edema. Full AROM/PROM of bilateral shoulders, no crepitus appreciated, no deformities appreciated, distal cap refill less than 2 seconds, no bruising or swelling appreciated. Neurologic: Alert and oriented X 3, normal motor function, normal sensory function, no focal deficits noted. Psychologic: Affect normal, judgement normal, mood normal. (JOSELUIS MORRIS APRN) Current Patient Data Vital Signs Vital Signs Date Time Temp Pulse Resp B/P (MAP) Pulse Ox O2 Delivery O2 Flow Rate FiO2 02/02/21 11:46 115 18 99/64 (76) 95 (JOSELUIS MORRIS APRN) EKG EKG [] (JOSELUIS MORRIS APRN) Radiology/Procedures Radiology/Procedures [] (JOSELUIS MORRIS APRN) Heart Score C/O Chest Pain: No Risk Factors: Risk Factors: DM, Current or recent (<one month) smoker, HTN, HLP, family history of CAD, obesity. Risk Scores: Risk Factors: DM, Current or recent (<one month) smoker, HTN, HLP, family history of CAD, obesity. (JOSELUIS MORRIS APRN) Course & Med Decision Making Course & Med Decision Making Pertinent Labs and Imaging studies reviewed. (See chart for details) 80-year-old female, vital signs reviewed, presents emergency department concerning nosebleed that started at 630 this morning. Patient currently has scant bright red blood oozing from right nare and postnasal area. Will order CBC, CMP, PT/PTT, saline lock to evaluate for infectious process or abnormal bleeding values. Shoulder discomfort most likely shoulder strain, will treat bilateral shoulder discomfort with 1 tablet 5/325 [place] no imaging indicated. Discussed with patient will recommend Debrox [id number] treatment for right external auditory canal wax impaction. Awaiting labs at this time. Upon reevaluation of the patient, patient states the pain medication tablet helped a lot, reexamination of oropharynx finds no postnasal bleeding or drainage at this time, patient is still having right nare with facial tissue with very light spotting of blood return however no nasal bleeding appreciated, the blood clot in right nare remains intact. Discussed with patient will order Afrin nasal spray to assist with blood clotting. Discussed with patient use of Afrin nasal spray at home for further bleeding. Discussed with patient strict return to emergency room precautions related to nasal bleeding. The patient's labs were unremarkable. Patient gave verbal understanding of discharge home instructions, strict return to ER precautions, maintain her normal cancer physician and primary care physician appointments coming up soon, patient states she feels much better and is ready to go home, patient was discharged home without incident. (JOSELUIS MORRIS APRN) Course & Med Decision Making I oversaw on the above date of service of this patient and discussed the care with the SALES AND LEASING CONSULTANT. Patient monitored extensively given initial vitals but these improved without intervention. Patient reported to be asymptomatic with all bleeding resolved. I agree with the stated findings, plan of care, and disposition as documented. Electronically signed, Ирина Hartman DO (ИРИНА HARTMAN DO) Mart Disclaimer Mart Disclaimer This electronic medical record was generated, in whole or in part, using a voice recognition dictation system. (JOSELUIS MORRIS APRN) Departure Departure: Impression: Primary Impression: Epistaxis Disposition: HOME / SELF CARE / HOMELESS Condition: STABLE Referrals: CLEMENTE MENDEZ MD (PCP) Patient Instructions: Nosebleed Additional Instructions: You were seen in the emergency department today for a nosebleed, your nose had stopped it significant bleeding prior to arrival. Labs were drawn in the emergency department today and did not show any concerning findings, we have discussed Afrin nasal spray use for nosebleeds. Please return to the emergency department immediately for uncontrolled bleeding. Please keep your normal appointments coming up soon with your cancer physician and primary care doctors. EMERGENCY DEPARTMENT GENERAL DISCHARGE INSTRUCTIONS Thank you for coming to [facility] (ED) today and trusting us with you care. We trust that you had a positivie experience in our Emergency Department. If you wish to speak to the department management, you may call the director at [phone]. YOUR FOLLOW UP INSTRUCTIONS ARE FOLLOWS: 1. Do you have a private Doctor? If you do not have a private doctor, please ask for a resource list of physicians or clinics that may be able to assist you with follow up care. 2. The Emergency Physician has interpreted your x-rays. The X-Ray specialist w ill also review them. If there is a change in the findings, you will be notified in 48 hours when at all possible. 3. A lab test or culture has been done, your results will be reviewed and you will be notified if you need a change in treatment. ADDITIONAL INSTRUCTIONS AND INFORMATION: 1. Your care today has been supervised by a physician who is specially trained in emergency care. Many problems require more than one evaluation for a complete diagnosis and treatment. We recommend that you schedule your follow up appointment as recommended to ensure complete treatment of you illness or injury. If you are unable to obtain follow up care and continue to have a problem, or if your condition worsens, we recommend that you return to the ED. 2. We are not able to safely determine your condition over the phone nor are we able to give sound medical advice over the phone. For these safety reasons, if you call for medical advice we will ask you to come to the ED for further evaluation. 3. If you have any questions regarding these discharge instructions please call the ED at [phone]. SAFETY INFORMATION: In the interest of safety, wellness, and injury prevention; we encourage you to wear your sealbelt, if you smoke; quite smoking, and we encourage family to use a protective helmet for bicycling and other sporting events that present an increased risk for head injury. IF YOUR SYMPTOMS WORSEN OR NEW SYMPTOMS DEVELOP, OR YOU HAVE CONCERNS ABOUT YOUR CONDITION; OR IF YOUR CONDITION WORSENS WHILE YOU ARE WAITING FOR YOUR FOLLOW UP APPOINTMENT; EITHER CONTACT YOUR PRIMARY CARE DOCTOR, THE PHYSICIAN WHOSE NAME AND NUMBER YOU WERE GIVEN, OR RETURN TO THE ED IMMEDIATELY. JOSELUIS MORRIS APRN Feb 02, 2021 12:33 ИРИНА HARTMAN DO Feb 03, 2021 07:15
[2021-02-02 12:36] LABS: CALCIUM 8.5 mg/dL (8.5-10.1); CREATININE 1.1 mg/dL (0.6-1.0)
[2021-02-02 12:42] LABS: ALBUMIN/GLOBULIN RATIO 0.7 (1.0-1.7); TOTAL BILIRUBIN 0.3 mg/dL (0.2-1.0); TOTAL PROTEIN 7.1 g/dL (6.4-8.2)
[2021-02-02 12:45] LABS: BASO # 0.1 x10^3/uL (0.0-0.2); BASO % 1 % (0-3); EOS % 0 % (0-3); HEMOGLOBIN 10.7 g/dL (12.0-15.5); LYMPH # 1.1 x10^3/uL (1.0-4.8); LYMPH % 12 % (24-48); MEAN CORPUSCULAR HEMOGLOBIN 31 pg (25-35); MEAN CORPUSCULAR HGB CONC 32 g/dL (31-37); MEAN CORPUSCULAR VOLUME 95 fL (79-100); MONO # 0.9 x10^3/uL (0.0-1.1); MONO % 10 % (0-9); NEUT # 6.8 x10^3uL (1.8-7.7); NEUT % 77 % (31-73); PLATELET COUNT 489 x10^3/uL (140-400); RED BLOOD COUNT 3.47 x10^6/uL (3.50-5.40); WHITE BLOOD COUNT 8.9 x10^3/uL (4.0-11.0)
[2021-02-02] MEDS ORDERED: OXYMETAZOLINE 0.05% NASAL SPRAY 30ML BOTTLE. NS ONE (13:45)
== END 2021-02-02 14:25 | disposition home or self-care (01) ==
LOC: ER 11:33
DX: R04.0 Epistaxis (principal); M25.511 Pain in right shoulder; M25.512 Pain in left shoulder; F41.9 Anxiety disorder, unspecified; E03.9 Hypothyroidism, unspecified; Z88.2 Allergy status to sulfonamides; Z88.1 Allergy status to other antibiotic agents
CPT/HCPCS: 36415; 80053; 85025; 85610; 85730; 99283